=== PATIENT | female | born 2000 | race Caucasian/White ===

== ENCOUNTER 2021-01-16 00:12 | Emergency (ER) | payer MEDICAID, OTHER ==
[~2021-01-16] VITALS: Ht 167.6 cm; Wt 119.0 kg
[~2021-01-16 00:12] MED LIST: CITA20TA9 PO; IBUP800T19 PO; METH-38 PO; NORE1TAB11 PO; OXCA300T19 PO; TRAZ-120 PO
[2021-01-16] MEDS ORDERED: MORPHINE SULFATE 4 MG/ML DISP.SYRIN. IV ONE (00:30)
[2021-01-16] MEDS ORDERED: IV NORMAL SALINE 1,000ML 1,000 ML IV ONE (00:30)
[2021-01-16] MEDS ORDERED: ONDANSETRON PF 4 MG/2 ML VIAL. IVP ONE (00:30)
--- NOTE | 2021-01-16 00:36 | PHYS DOC ---
Past History Past Medical History: Anxiety, Depression Past Surgical History: Other Smoking: Non-smoker Alcohol Use: None Drug Use: None General Adult EDM: Chief Complaint: ABSCESS HPI: HPI: 20-year-old female presents with facial abscess and concern for bacteremia. She went to her primary care physician earlier today for what she believes was an upper lip abscess due to a lip piercing. She was given an antibiotic by IM injection. She is not sure which one it was. She was discharged with a prescription for 7 days of Keflex. She has taken 1 500 mg tablet. Her injection was about 12 hours ago. The patient was told that if the swelling got worse or she developed a fever that she should come to the emergency room. The patient now has a fever of 100.9 and the swelling appears to be worse. She has lymphadenopathy and soreness in the anterior neck bilaterally. The lesion is also painful and she is unable to sleep. Review of Systems: Review of Systems: Constitutional: Fever Eyes: Denies change in visual acuity HENT: Upper lip swelling, bilateral neck tenderness and swelling Respiratory: Denies cough or shortness of breath Cardiovascular: Denies chest pain or edema GI: Denies abdominal pain, nausea, vomiting, bloody stools or diarrhea : Denies dysuria Musculoskeletal: Denies back pain or joint pain Integument: Denies rash Neurologic: Denies headache, focal weakness or sensory changes Endocrine: Denies polyuria or polydipsia Lymphatic: Denies swollen glands Psychiatric: Denies depression or anxiety Allergies: Allergies: Allergies Coded Allergies Type Severity Reaction Last Updated Verified No Known Drug Allergies 05/31/15 No Physical Exam: PE: Constitutional: Well developed, well nourished, no acute distress, non-toxic appearance. [] HENT: Normocephalic, atraumatic, bilateral external ears normal, oropharynx moist, no oral exudates, nose normal. Erythematous, swollen upper lip with evidence of removed piercing. Ulceration on the anterior of the upper lip. Tender to palpation. Bilateral anterior cervical lymphadenopathy. [] Eyes: PERRLA, EOMI, conjunctiva normal, no discharge. [] Neck: Normal range of motion, supple, no stridor. [] Cardiovascular: Heart rate tachycardic, regular rhythm, no murmur [] Lungs & Thorax: Bilateral breath sounds clear to auscultation [] Abdomen: Bowel sounds normal, soft, no tenderness, no masses, no pulsatile masses. [] Skin: Warm, dry, no erythema, no rash. [] Back: No tenderness, no CVA tenderness. [] Extremities: No tenderness, no cyanosis, no clubbing, ROM intact, no edema. [] Neurologic: Alert and oriented X 3, normal motor function, normal sensory function, no focal deficits noted. [] Psychologic: Affect normal, judgement normal, mood concerned. [] EKG: EKG: [] Radiology/Procedures: Radiology/Procedures: [] Heart Score: C/O Chest Pain: N/A Risk Factors: Risk Factors: DM, Current or recent (<one month) smoker, HTN, HLP, family history of CAD, obesity. Risk Scores: Score 0 - 3: 2.5% MACE over next 6 weeks - Discharge Home Score 4 - 6: 20.3% MACE over next 6 weeks - Admit for Clinical Observation Score 7 - 10: 72.7% MACE over next 6 weeks - Early Invasive Strategies Course & Med Decision Making: Course & Med Decision Making Pertinent Labs and Imaging studies reviewed. (See chart for details) The patient's lab shows a normal white count and differential. CMP is unremarkable. The patient does have a lactic acid of 2.3. We have given her a liter of normal saline and she appeared clinically dry on presentation. CT scan shows soft tissue swelling but no abscess. No abnormal swelling or lymphadenopathy of the neck. I have given the patient morphine for discomfort and this has helped with the pain. This appears to be cellulitis and the prescribed antibiotics should be sufficient, but it has been less than 24 hours since the first dose. The patient's repeat temperature check is 99. Her original fever may have been an errant reading. The patient does not appear toxic. The ulcerative appearance of the inside of the lip makes me think about herpes simplex. Patient states she had a cold sore once as a younger child, but does not regularly have flareups. I believe it is reasonable to give her 2 g of valacyclovir just in case. The patient is okay with being discharged home. I believe this is reasonable as she does not absolutely need to be admitted to the hospital. If her condition worsens in any way she will return. She is stable for discharge at this time. [] Jackelyn Disclaimer: Jackelyn Disclaimer: This electronic medical record was generated, in whole or in part, using a voice recognition dictation system. Departure Departure: Impression: Primary Impression: Cellulitis, face Disposition: HOME / SELF CARE / HOMELESS Condition: IMPROVED Referrals: LOTUS GREEN MD (PCP) Patient Instructions: Cellulitis, [id number] ZACHARY BENITEZ DO Jan 16, 2021 00:36
[2021-01-16] MEDS ORDERED: CONTRAST GIVEN. MC PRN (00:45)
[2021-01-16] MEDS ORDERED: IOHEXOL 300 MG/ML 75 ML VIAL. IV ONE (00:45)
[2021-01-16 01:21] LABS: BASO % 1 % (0-3); EOS # 0.1 x10^3/uL (0.0-0.7); EOS % 1 % (0-3); HEMATOCRIT 43.9 % (36.0-47.0); HEMOGLOBIN 14.8 g/dL (12.0-15.5); LYMPH # 1.7 x10^3/uL (1.0-4.8); LYMPH % 17 % (24-48); MEAN CORPUSCULAR HEMOGLOBIN 30 pg (25-35); MEAN CORPUSCULAR HGB CONC 34 g/dL (31-37); MEAN CORPUSCULAR VOLUME 89 fL (79-100); MONO # 0.6 x10^3/uL (0.0-1.1); MONO % 6 % (0-9); NEUT # 7.6 x10^3uL (1.8-7.7); NEUT % 76 % (31-73); PLATELET COUNT 308 x10^3/uL (140-400); RED BLOOD COUNT 4.94 x10^6/uL (3.50-5.40); RED CELL DISTRIBUTION WIDTH 13.6 % (11.5-14.5)
[2021-01-16 01:26] LABS: CALCIUM 9.3 mg/dL (8.5-10.1); CREATININE 0.8 mg/dL (0.6-1.0); GFR 89.7; POTASSIUM 3.4 mmol/L (3.5-5.1)
[2021-01-16 01:31] LABS: ALBUMIN 3.6 g/dL (3.4-5.0); ALBUMIN/GLOBULIN RATIO 0.7 (1.0-1.7); TOTAL BILIRUBIN 0.3 mg/dL (0.2-1.0); TOTAL PROTEIN 8.7 g/dL (6.4-8.2)
--- NOTE | 2021-01-16 01:58 | RAD ---
CT neck with contrast History: Upper lip swelling Axial helical images of the neck were obtained after the administration of 75 cc IV [id number] Axial coronal and sagittal reconstruction was performed for a CT soft tissues neck with contrast. Findings: The fat soft tissue planes of the neck are preserved. There is no mass or lymphadenopathy. There is n o prevertebral soft tissue swelling. The thyroid appears normal. Mild reversal of the normal cervical lordosis is seen. There is enhancement and swelling of the upper lip. The nasal septum is moderately deviated to the left. The paranasal sinuses are clear. Impression: Soft tissue swelling of the upper lip. No focal abscess. End impression PQRS Compliance Statement: One or more of the following individualized dose reduction techniques were utilized for this examinat ion: 1. Automated exposure control 2. Adjustment of the mA and/or kV according to patient size 3. Use of iterative reconstruction technique Electronically signed by: Yonny Polanco III, MD (01/16/2021 1:56 AM) [facility]
[2021-01-16] MEDS ORDERED: valACYclovir 500 MG TABLET. PO STA (02:14)
[2021-01-16 03:01] VITALS: BP 111/65
== END 2021-01-16 03:00 | disposition home or self-care (01) ==
LOC: ER 00:12
DX: L03.211 Cellulitis of face (principal); F41.9 Anxiety disorder, unspecified; F32.9 Major depressive disorder, single episode, unspecified
CPT/HCPCS: 36415; 70491; 80053; 83605; 85025; 87040; 96361; 96374; 96375; 99285; J2270; J2405; J7030; Q9967

== ENCOUNTER 2021-05-30 22:20 | Emergency (ER) | payer OTHER ==
[~2021-05-30] VITALS: Ht 167.6 cm; Wt 120.0 kg
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
--- NOTE | 2021-05-30 22:39 | RAD ---
XR CHEST 1V INDICATION: PSYCH ADMIT. CHEST HEAVINESS . COMPARISON STUDY: None. FINDINGS: Lungs: Normal lung volume. No pulmonary mass or consolidation. The tracheobronchial tree and hilar st ructures are normal. Pleura: No pleural effusion or pneumothorax. Heart and Mediastinum: The cardiomediastinal silhouette is normal. The great vessels of the thorax ar e normal. IMPRESSION: No acute cardiopulmonary process. Electronically signed by: Flavio Winchester MD (05/30/2021 10:37 PM) [facility]
[2021-05-30 22:50] LABS: BASO % 0 % (0-3); EOS % 1 % (0-3); HEMATOCRIT 41.6 % (36.0-47.0); HEMOGLOBIN 14.2 g/dL (12.0-15.5); LYMPH # 2.2 x10^3/uL (1.0-4.8); LYMPH % 28 % (24-48); MEAN CORPUSCULAR HEMOGLOBIN 31 pg (25-35); MEAN CORPUSCULAR HGB CONC 34 g/dL (31-37); MEAN CORPUSCULAR VOLUME 89 fL (79-100); MONO # 0.5 x10^3/uL (0.0-1.1); MONO % 7 % (0-9); NEUT # 5.1 x10^3uL (1.8-7.7); NEUT % 65 % (31-73); PLATELET COUNT 311 x10^3/uL (140-400); RED BLOOD COUNT 4.65 x10^6/uL (3.50-5.40); RED CELL DISTRIBUTION WIDTH 13.5 % (11.5-14.5); WHITE BLOOD COUNT 7.8 x10^3/uL (4.0-11.0)
[2021-05-30 22:58] LABS: CREATININE 0.8 mg/dL (0.6-1.0); GFR 88.9; POTASSIUM 3.2 mmol/L (3.5-5.1)
[2021-05-30 23:02] LABS: BARBITURATES NEG (NEG); BENZODIAZEPINES NEG (NEG); CANNABINOIDS POS (NEG); COCAINE NEG (NEG); METHADONE NEG (NEG); OPIATES NEG (NEG); PHENCYCLIDINE NEG (NEG)
[2021-05-30 23:03] LABS: ETHANOL < 10 mg/dL (0-10); SALIC 3.5 mg/dL (2.8-20.0)
[2021-05-30 23:03] LABS: AMPHETAMINE/METHAMPHETAMINE NEG (NEG)
[2021-05-30 23:04] LABS: ACETAMIN < 2.0 mcg/mL (10-30)
[2021-05-30 23:09] LABS: BILIRUBIN,URINE SMALL (NEG); CLARITY,URINE HAZY; COLOR,URINE YELLOW; GLUCOSE,URINE NEG (NEG)
[2021-05-30 23:10] LABS: BACTERIA,URINE 0 /HPF (0-FEW); NITRITE,URINE NEG (NEG); RBC,URINE OCC /HPF (0-2); SQUAMOUS EPITHELIAL CELL,UR MOD /LPF; UROBILINOGEN,URINE 0.2 mg/dL (0.2 mg/dL); WBC,URINE OCC /HPF (0-4)
[2021-05-31] MEDS ORDERED: IBUPROFEN 400 MG TABLET. PO ONE (02:00)
[2021-05-31] MEDS ORDERED: ACETAMINOPHEN 500 MG TABLET PO ONE (02:00)
[2021-05-31 02:19] VITALS: BP 113/85
[2021-05-31] MEDS ORDERED: POTASSIUM CHLORIDE 20 MEQ TABLET.ER. PO ONE (03:00)
== END 2021-05-31 04:20 ==
LOC: ER 22:20
DX: R45.851 Suicidal ideations (principal); F32.9 Major depressive disorder, single episode, unspecified; F41.9 Anxiety disorder, unspecified; Z20.822 Contact with and (suspected) exposure to COVID-19
CPT/HCPCS: 36415; 71045; 80048; 80307; 80329; 81001; 81025; 85025; 87426; 99285; C9803; G0480; U0003

== ENCOUNTER 2021-10-18 11:47 | Emergency (ER) | payer BC, OTHER ==
[~2021-10-18] VITALS: Ht 167.6 cm; Wt 120.0 kg
[2021-10-18] MEDS ORDERED: IV NORMAL SALINE 1,000ML 1,000 ML IV SCH (12:15)
[2021-10-18] MEDS ORDERED: ONDANSETRON PF 4 MG/2 ML VIAL. IVP ONE (12:15)
--- NOTE | 2021-10-18 12:32 | PHYS DOC ---
Past History Past Medical History: Anxiety, Depression Additional Past Medical Histor: mood d/o (SHALOM AGUILA APRN) Past Surgical History: Other Additional Past Surgical Histo: ear tubes (SHALOM AGUILA APRN) Smoking: Non-smoker Alcohol Use: None Drug Use: None (SHALOM AGUILA APRN) General Adult EDM: Chief Complaint: VOMITING IN HPI: HPI: Patient is a 21-year-old female who presents to the emergency department for nausea and vomiting in over the last 12 hours. She is also reporting mild right lower abdominal pain and epigastric pain. Patient reports that she is approximately 12 weeks . Last menstrual period was July 24. She has her first OB appointment on November 04 [facility] and she has not had any ultrasound previously. She is . Patient denies any vaginal bleeding, blood and stool or vomit, dysuria, fever, cough, shortness of breath, sick exposures. (SHALOM AGUILA APRN) Review of Systems: Review of Systems: Constitutional: negative unless reported in HPI Eyes: negative unless reported in HPI HENT: negative unless reported in HPI Respiratory: negative unless reported in HPI Cardiovascular: negative unless reported in HPI GI: negative unless reported in HPI : negative unless reported in HPI Musculoskeletal: negative unless reported in HPI Integument: negative unless reported in HPI Neurologic: negative unless reported in HPI Endocrine: negative unless reported in HPI Lymphatic: negative unless reported in HPI Psychiatric: negative unless reported in HPI (SHALOM AGUILA APRN) Current Medications: Current Meds: Current Medications Medications (Trade) Dose Ordered Sig/Celestina Start Time Stop Time Status Last Admin Dose Admin Ondansetron HCl (Zofran) 4 mg 1X ONCE 10/18/21 12:15 10/18/21 12:16 UNV Sodium Chloride 1,000 ml @ 1,000 mls/hr Q1H 10/18/21 12:15 10/18/21 13:14 UNV (SHALOM AGUILA APRN) Allergies: Allergies: Allergies Coded Allergies Type Severity Reaction Last Updated Verified No Known Drug Allergies 10/18/21 No (SHALOM AGUILA APRN) Physical Exam: PE: Constitutional: Well developed, well nourished, no acute distress, non-toxic appearance. [] HENT: Normocephalic, atraumatic, bilateral external ears normal, oropharynx moist, no oral exudates, nose normal. [] Eyes: PERRL, EOMI, conjunctiva normal, no discharge. [] Neck: Normal range of motion, no stridor Cardiovascular:Heart rate regular rhythm, no murmur [] Lungs & Thorax: Bilateral breath sounds clear to auscultation [] Abdomen: Bowel sounds normal, soft, mild right lower abdominal/pelvic pain with palpation, no rigidity, no guarding, no rebound tenderness, no masses, no pulsatile masses. [] Skin: Warm, dry, no erythema, no rash. [] Back: Normal range of motion Extremities: No tenderness, no cyanosis, no clubbing, ROM intact, no edema. [] Neurologic: Alert and oriented X 3, normal motor function, normal sensory function, no focal deficits noted. [] Psychologic: Affect normal, judgement normal, mood normal. [] (SHALOM AGUILA APRN) Current Patient Data: Labs: Laboratory Tests Test 10/18/21 13:00 White Blood Count 7.7 x10^3/uL Red Blood Count 4.33 x10^6/uL Hemoglobin 13.4 g/dL Hematocrit 39.0 % Mean Corpuscular Volume 90 fL Mean Corpuscular Hemoglobin 31 pg Mean Corpuscular Hemoglobin Concent 34 g/dL Red Cell Distribution Width 13.2 % Platelet Count 288 x10^3/uL Neutrophils (%) (Auto) 88 % Lymphocytes (%) (Auto) 9 % Monocytes (%) (Auto) 3 % Eosinophils (%) (Auto) 0 % Basophils (%) (Auto) 0 % Neutrophils # (Auto) 6.8 x10^3uL Lymphocytes # (Auto) 0.7 x10^3/uL Monocytes # (Auto) 0.2 x10^3/uL Eosinophils # (Auto) 0.0 x10^3/uL Basophils # (Auto) 0.0 x10^3/uL Urine Collection Type Clean catch Urine Color Yellow Urine Clarity Clear Urine pH 6.0 Urine Specific Call >=1.030 Urine Protein 30 mg/dl Urine Glucose (UA) Neg mg/dL Urine Ketones (Stick) >=160 mg/dL Urine Blood Trace Urine Nitrite Neg Urine Bilirubin Small Urine Urobilinogen Dipstick 0.2 mg/dL Urine Leukocyte Esterase Neg Urine RBC 3-5 /HPF Urine WBC 0 /HPF Urine Squamous Epithelial Cells Many /LPF Urine Bacteria 0 /HPF Maternal Serum HCG Beta Subunit 65042 mIU/mL Sodium Level 134 mmol/L Potassium Level 3.4 mmol/L Chloride Level 99 mmol/L Carbon Dioxide Level 21 mmol/L Anion Gap 14 Blood Urea Nitrogen 10 mg/dL Creatinine 0.6 mg/dL Estimated GFR (Cockcroft-Gault) 123.9 BUN/Creatinine Ratio 17 Glucose Level 88 mg/dL Calcium Level 8.9 mg/dL Total Bilirubin 0.5 mg/dL Aspartate Amino Transf (AST/SGOT) 15 U/L Alanine Aminotransferase (ALT/SGPT) 18 U/L Alkaline Phosphatase 65 U/L Total Protein 7.7 g/dL Albumin 3.5 g/dL Albumin/Globulin Ratio 0.8 Current Medications Medications (Trade) Dose Ordered Sig/Celestina Route PRN Reason Start Time Stop Time Status Last Admin Dose Admin Sodium Chloride 1,000 ml @ 1,000 mls/hr Q1H IV 10/18/21 12:15 10/18/21 13:14 DC 10/18/21 12:15 Ondansetron HCl (Zofran) 4 mg 1X ONCE IVP 10/18/21 12:15 10/18/21 12:28 DC 10/18/21 12:57 Vital Signs: Vital Signs Date Time Temp Pulse Resp B/P (MAP) Pulse Ox O2 Delivery O2 Flow Rate FiO2 10/18/21 12:08 98.0 103 20 129/82 (98) 98 Room Air (SHALOM AGUILA APRN) EKG: EKG: [] (SHALOM AGUILA APRN) Radiology/Procedures: Radiology/Procedures: []PROCEDURE: PREG 1ST TRIMESTER EXAMINATION: US OB <14 WKS INDICATION: 21 years, Female, abdominal pain, vaginal spotting. COMPARISON: None. TECHNIQUE: Transabdominal ultrasound of the pelvis was performed with grayscale, spectral, and color doppler imaging. FINDINGS: Menstrual Status: 07/24/2021 UTERUS: Position: Anteverted. Measures: 13 x 8.9 x 7.8 cm. GESTATIONAL SAC: Regular morphology. [place]-Rump Length: 6.71 corresponds to 13w0d. Heart Rate: 160 bpm. Placenta location: Anterior. Amniotic fluid: Grossly normal. Expected date of delivery by LMP is 04/30/2022. Expected date of delivery by ultrasound is 04/25/2022. OVARIES: Not visualized, obscured by overlying bowel gas. Fluid: None. IMPRESSION Single live intrauterine with estimated gestational age based on crown-rump length is 13 weeks and 0 days. Electronically signed by: Terry Mac MD (10/18/2021 2:06 PM) [facility] DICTATED AND SIGNED BY: TERRY MAC MD DATE: 10/18/21 1402 CC: LOTUS GREEN MD; SHALOM AGUILA APRN ~MTH0 0 (SHALOM AGUILA APRN) Heart Score: C/O Chest Pain: N/A Risk Factors: Risk Factors: DM, Current or recent (<one month) smoker, HTN, HLP, family history of CAD, obesity. Risk Scores: Score 0 - 3: 2.5% MACE over next 6 weeks - Discharge Home Score 4 - 6: 20.3% MACE over next 6 weeks - Admit for Clinical Observation Score 7 - 10: 72.7% MACE over next 6 weeks - Early Invasive Strategies (SHALOM AGUILA APRN) Course & Med Decision Making: Course & Med Decision Making Pertinent Labs and Imaging studies reviewed. (See chart for details) Patient presents to the emergency department for a 12-hour history of nausea and vomiting in . Patient reports that she is approximately 12 weeks . Work-up in the ER consisted of blood work, urinalysis and ultrasound. Patient be treated with IV fluids and nausea medication. CBC unremarkable. Patient was noted to have hypokalemia and this was replaced in the emergency de partment. Urinalysis negative. Ultrasound shows a 13-week intrauterine gestation with a heart rate of 160 bpm. Patient advised to contact her OB in follow-up. She will be discharged home with nausea medication. I discussed with patient all findings and diagnostic testing as well as the need to follow- up with PCP for further evaluation and treatment or return to the ER if any new or worsening symptoms. Strict return precautions were also discussed at length. Patient voiced understanding and agreement with the plan. Patient is hemodynamically stable at the time of disposition. (SHALOM AGUILA APRN) Dragon Disclaimer: Dragon Disclaimer: This electronic medical record was generated, in whole or in part, using a voice recognition dictation system. (SHALOM AGUILA APRN) Departure Departure: Impression: Primary Impression: Nausea and vomiting during prior to 22 weeks gestation Disposition: HOME / SELF CARE / HOMELESS Condition: GOOD Referrals: LOTUS GREEN MD (PCP) Patient Instructions: Nausea and Vomiting Additional Instructions: You were seen in the emergency department today for nausea and vomiting in . Your potassium was mildly low and this was replaced in the emergency department. Please make sure that you are eating potassium rich foods such as green leafy vegetables and bananas. The ultrasound showed a intrauterine measuring 13 weeks. You are being discharged home with nausea medication that you can take as needed please make sure that you are increasing your fluids. Follow-up with your OB on Wednesday. Return to the emergency department if you develop worsening of your abdominal pain, vaginal bleeding, intractable nausea or vomiting, fevers refractory to treatment, blood in your stools or vomit or any new or worsening concerns. Scripts Ondansetron (ONDANSETRON ODT) 4 Mg Tab.rapdis 1 TAB PO PRN Q6-8HRS for nausea for 7 Days, #16 TAB 0 Refills Prov: SHALOM AGUILA APRN 10/18/21 Attending Signature Attending Signature I have reviewed the PA/POSITION CLERK's note and plan of care. I was available for consultation as needed during the patient's visit in the emergency department. I agree with the clinical impression, plan, and disposition. (BARBARA MARTINEZ DO) SHALOM AGUILA APRN Oct 18, 2021 12:32 BARBARA MARTINEZ DO Oct 19, 2021 01:23
[2021-10-18 13:16] LABS: BASO % 0 % (0-3); EOS % 0 % (0-3); HEMOGLOBIN 13.4 g/dL (12.0-15.5); LYMPH # 0.7 x10^3/uL (1.0-4.8); LYMPH % 9 % (24-48); MEAN CORPUSCULAR HEMOGLOBIN 31 pg (25-35); MEAN CORPUSCULAR HGB CONC 34 g/dL (31-37); MEAN CORPUSCULAR VOLUME 90 fL (79-100); MONO # 0.2 x10^3/uL (0.0-1.1); MONO % 3 % (0-9); NEUT # 6.8 x10^3uL (1.8-7.7); NEUT % 88 % (31-73); PLATELET COUNT 288 x10^3/uL (140-400); RED BLOOD COUNT 4.33 x10^6/uL (3.50-5.40); RED CELL DISTRIBUTION WIDTH 13.2 % (11.5-14.5); WHITE BLOOD COUNT 7.7 x10^3/uL (4.0-11.0)
[2021-10-18 13:24] LABS: BACTERIA,URINE 0 /HPF (0-FEW); BILIRUBIN,URINE SMALL (NEG); CALCIUM 8.9 mg/dL (8.5-10.1); CLARITY,URINE CLEAR; COLOR,URINE YELLOW; CREATININE 0.6 mg/dL (0.6-1.0); GFR 123.9; GLUCOSE,URINE NEG (NEG); NITRITE,URINE NEG (NEG); POTASSIUM 3.4 mmol/L (3.5-5.1); SQUAMOUS EPITHELIAL CELL,UR MANY /LPF; UROBILINOGEN,URINE 0.2 mg/dL (0.2 mg/dL); WBC,URINE 0 /HPF (0-4)
[2021-10-18 13:30] LABS: ALBUMIN 3.5 g/dL (3.4-5.0); ALBUMIN/GLOBULIN RATIO 0.8 (1.0-1.7); TOTAL BILIRUBIN 0.5 mg/dL (0.2-1.0); TOTAL PROTEIN 7.7 g/dL (6.4-8.2)
--- NOTE | 2021-10-18 14:08 | RAD ---
EXAMINATION: US OB <14 WKS INDICATION: 21 years, Female, abdominal pain, vaginal spotting. COMPARISON: None. TECHNIQUE: Transabdominal ultrasound of the pelvis was performed with grayscale, spectral, and color doppler imaging. FINDINGS: Menstrual Status: 07/24/2021 UTERUS: Position: Anteverted. Measures: 13 x 8.9 x 7.8 cm. GESTATIONAL SAC: Regular morphology. [place] P[place]-Rump Length: 6.71 corresponds to 13w0d. Heart Rate: 160 bpm. Placenta location: Anterior. Amniotic fluid: Grossly normal. Expected date of delivery by LMP is 04/30/2022. Expected date of delivery by ultrasound is 04/25/2022. OVARIES: Not visualized, obscured by overlying bowel gas. Fluid: None. IMPRESSION Single live intrauterine with estimated gestational age based on crown-rump length is 13 we eks and 0 days. Electronically signed by: Christine Mac MD (10/18/2021 2:06 PM) [facility]
[2021-10-18] MEDS ORDERED: ONDA4TAB12 PO (14:29)
[2021-10-18] MEDS ORDERED: POTASSIUM CHLORIDE 20 MEQ TABLET.ER. PO ONE (14:30)
[2021-10-18 15:10] VITALS: BP 124/70
== END 2021-10-18 15:12 | disposition home or self-care (01) ==
LOC: ER 11:51
DX: O21.9 Vomiting of pregnancy, unspecified (principal); Z3A.13 13 weeks gestation of pregnancy
CPT/HCPCS: 36415; 76801; 80053; 81001; 84702; 85025; 96361; 96374; 99284; J2405; J7030